=== PATIENT | female | born 1980 | race Caucasian/White ===

== ENCOUNTER 2020-05-24 20:10 | Emergency (ER) | payer OTHER ==
[~2020-05-24] VITALS: Ht 165.1 cm; Wt 64.4 kg
[2020-05-24 20:16] VITALS: BP_SYST 120
--- NOTE | 2020-05-24 20:16 | NUR ---
PT TO REMAIN IN TENT UNTIL ER BED BECOMES AVAILABLE
--- NOTE | 2020-05-24 21:02 | NUR ---
RIDGE Griffith examining patient.
[2020-05-24 22:10] VITALS: BP_SYST 120
--- NOTE | 2020-05-24 22:10 | NUR ---
Patient given written and verbal discharge instructions and verbalizes understanding. DR. HOMERO SABILLON MD discussed with patient the results and treatment provided. Patient in stable condition. ID arm band removed. Patient educated on pain management and to follow up with PMD. Pain Scale 0/10. Opportunity for questions provided and answered.
== END 2020-05-24 22:10 | disposition home or self-care (01) ==
LOC: SED 20:10
DX: J02.8 Acute pharyngitis due to other specified organisms (principal); B97.89 Other viral agents as the cause of diseases classified elsewhere; Z88.0 Allergy status to penicillin; Z85.9 Personal history of malignant neoplasm, unspecified; Z20.828 Contact with and (suspected) exposure to other viral communicable diseases
CPT/HCPCS: 36415; 86403; 87081; 99283